=== PATIENT | male | born 1955 ===

== ENCOUNTER 2023-08-25 21:32 | Outpatient (CLI) | payer MEDICARE, OTHER ==
--- NOTE | 2023-08-26 16:54 | Ultrasound Report ---
PROCEDURE: Testicle INDICATIONS: Testicle mass TECHNIQUE: Real-time scanning was performed of the scrotum and testicles, with image documentation. Color and p ulse Doppler interrogation was performed of both testicles. COMPARISON: None. FINDINGS: Right: Testicle is normal in size at 4.4 x 2.2 x 2.9 cm, and homogenous in echotexture. Epididymis is heterogeneous in echotexture particularly with ill-defined hypoechoic area involving the right epi didymal head region measures 3 x 1.7 cm in size and contains multiple foci of hyperechogenicity measu res up to 4 mm in size. no hydrocele. No varicoceles. Overlying scrotal skin is normal in thickness. Left: Testicle is normal in size at 4.7 x 2.2 x 3 cm, and homogeneous in echotexture. Epididymis is normal in overall size and morphology. Trace amount of left hydrocele. No varicoceles. Overlying s crotal skin is normal in thickness. Doppler: Color and pulse Doppler demonstrate normal and symmetric arterial flow in both testicles. IMPRESSION: 1. Normal-appearing bilateral testes and left epididymis. 2. Heterogeneous right epididymal echotexture with 3 x 1.7 cm area of heterogeneously hypoechogenicit y involving head of right epididymitis with internal echogenic foci. Finding may represent sequela fr om prior right epididymitis versus right epididymal head mass, suggest clinical correlation and short -term ultrasound follow-up in 4-6 weeks. 3. Trace amount of left hydrocele. Reviewed by: Titi Mendes MD on 08/26/2023 4:53 PM PDT Approved by: Titi Mendes MD on 08/26/2023 4:53 PM PDT Station ID: [id number]
== END 2023-08-25 21:33 | disposition home or self-care (01) ==
LOC: DI 21:32
PROVIDERS: ATTEND Physician Assistant Medical
DX: N50.9 Disorder of male genital organs, unspecified (principal); N43.3 Hydrocele, unspecified

== ENCOUNTER 2023-10-03 11:41 | Outpatient (CLI) | payer MEDICARE, OTHER ==
--- NOTE | 2023-10-03 13:15 | Ultrasound Report ---
PROCEDURE: Testicle INDICATIONS: TESTICULAR MASS TECHNIQUE: Real-time scanning was performed of the scrotum and testicles, with image documentation. Color and p ulse Doppler interrogation was performed of both testicles. COMPARISON: None. FINDINGS: Right: Testicle is normal in size at 4.5 x 2.3 x 3.1 cm, and heterogeneous in echotexture. Epididym is is normal in overall size and is heterogeneous in echotexture. Coarse calcifications and heterogen eous echotexture is seen in right epididymal head region corresponds to patient's reported area of pa lpable lump. No hydrocele. No varicoceles. Overlying scrotal skin is normal in thickness. Left: Testicle is normal in size at 4.2 x 2.4 x 2.8 cm, and heterogeneous in echotexture. Epididymi s is normal in overall size and is heterogeneous in echotexture.. Left epididymal head cyst is seen m easures 5 x 8 x 5 mm in size Small left hydrocele is seen measures 1.9 x 2.3 x 1 cm in size. No varic oceles. Overlying scrotal skin is normal in thickness. Doppler: Color and pulse Doppler demonstrate normal and symmetric arterial flow in both testicles. IMPRESSION: 1. Heterogeneous bilateral testicular parenchymal echotexture without discrete testicular mass. 2. Heterogeneous bilateral epididymal parenchymal echotexture. Previously described 3 x 1.7 cm area o f heterogeneous echotexture and coarse calcification involving right epididymal head region now measu res 2.3 x 1.4 cm in size. Additional ultrasound follow up in 4-6 weeks is recommended. 3. Small left-sided hydrocele. Left epididymal head cyst as above. Reviewed by: Titi Mendes MD on 10/03/2023 1:13 PM PDT Approved by: Titi Mendes MD on 10/03/2023 1:13 PM PDT Station ID: [id number]
== END 2023-10-03 11:42 | disposition home or self-care (01) ==
LOC: DI 11:41
PROVIDERS: ATTEND Physician Assistant Medical
DX: N43.3 Hydrocele, unspecified (principal); N50.3 Cyst of epididymis; N50.89 Other specified disorders of the male genital organs